=== PATIENT | male | born 1965 | race Caucasian/White ===

== ENCOUNTER 2017-07-25 18:03 | Emergency (ER) | payer OTHER ==
[~2017-07-25] VITALS: Ht 180.3 cm; Wt 79.4 kg
[~2017-07-25 18:03] MED LIST: AMOXICILLIN 50500 MG PO; AMOXICILLIN875 MG PO; CITRATE OF MAG296 ML PO; EFFEXOR XR75 MG PO; LISINOPRIL20 MG PO; NORCO 5-325 TA1 EACH PO; PENICILLIN VK500 MG PO; PERCOCET 5-3251 EACH PO; PRILOSEC 20 MG20 MG PO; ZOLOFT25 MG PO
[2017-07-25] MEDS ORDERED: CLONAZEPAM 0.50.5 M1 PO (18:15)
[2017-07-25] MEDS ORDERED: PAXIL10 MG PO (18:15)
[2017-07-25 18:46] LABS: ABSOLUTE BASOPHILS 0.1 thou/uL (0.0-0.2); ABSOLUTE EOSINOPHILS 0.1 thou/uL (0.0-0.7); ABSOLUTE LYMPHOCYTES 1.8 thou/uL (0.8-5.3); ABSOLUTE MONOCYTES 0.3 thou/uL (0.0-1.2); ABSOLUTE NEUTROPHILS 3.1 thou/uL (1.6-8.1); BASOPHILS 1.7 %; HEMATOCRIT 43.6 % (42.0-52.0); HEMOGLOBIN 15.8 gm/dL (14.0-18.0); LYMPHOCYTES 32.7 %; MCH 31.6 pg (26.0-34.0); MCHC 36.2 g/dL (28.0-37.0); MCV 87.4 fL (80.0-100.0); MONOCYTES 5.9 %; MPV 7.9 fl. (7.2-11.1); NUCLEATED RBCS 0 /100WBC; PLATELET COUNT* 257 thou/uL (150-400); POLYS 57.7 %; RBC 4.99 mil/uL (4.50-6.00); RDW-CV 13.3 % (10.5-14.5); WBC 5.4 thou/uL (4.0-11.0)
[2017-07-25 18:55] LABS: POTASSIUM 3.9 mmol/L (3.5-5.1)
[2017-07-25 18:59] LABS: TOTAL PROTEIN 6.9 g/dL (6.4-8.2)
[2017-07-25 19:43] LABS: CREATININE 0.6 mg/dL (0.6-1.3)
[2017-07-25 19:44] LABS: TOTAL BILIRUBIN 0.5 mg/dL (<0.1-1.0)
[2017-07-25 19:45] LABS: CALCIUM 8.6 mg/dL (8.5-10.1)
[2017-07-25 19:46] LABS: ALBUMIN 3.8 g/dL (3.4-5.0)
[2017-07-25 21:07] VITALS: BP 137/84
== END 2017-07-25 21:09 | disposition short-term general hospital (02) ==
LOC: M.ERS 18:03
PROVIDERS: Physician Assistant
DX: T27.3XXA Burn of respiratory tract, part unspecified, initial encounter (principal); T21.02XA Burn of unspecified degree of abdominal wall, initial encounter; T20.07XA Burn of unspecified degree of neck, initial encounter; T23.021A Burn of unspecified degree of single right finger (nail) except thumb, initial encounter; T23.012D Burn of unspecified degree of left thumb (nail), subsequent encounter; T31.0 Burns involving less than 10% of body surface; I10 Essential (primary) hypertension; K21.9 Gastro-esophageal reflux disease without esophagitis; Z90.49 Acquired absence of other specified parts of digestive tract; X15.0XXA Contact with hot stove (kitchen), initial encounter; Y93.89 Activity, other specified; Y92.89 Other specified places as the place of occurrence of the external cause; Y99.8 Other external cause status